=== PATIENT | female | born 1945 | race Caucasian/White ===

== ENCOUNTER 2017-10-01 07:46 | Outpatient (CLI) | payer MEDICARE, BC ==
[2017-10-01] MEDS ORDERED: Iopamidol 370 76% 100 ML VIAL ONE (09:00)
--- NOTE | 2017-10-01 09:08 | CT ---
CT CHEST WITH IV CONTRAST: HISTORY: Restaging lung cancer. Malignant neoplasm of the lower lobe left bronchus of lung, which was diagnos ed in 2009. The patient is post chemo/radiation therapy. COMPARISON: Study from [facility] from 04/22/2017. FINDINGS: No mediastinal, hilar, or axillary mass or lymphadenopathy is seen. Trace pericardial fluid is again noted. No pleural effusions are identified. The parenchymal scarring with association traction bronchiectasis in the left lung base and the focal nodular infiltrate in the right posterior lung base remains stable. The calcified granuloma in the posteromedial aspect of the right lower lobe is also stable. No new lung nodules are identified. There are degenerative changes in the spine. No osteolytic or osteoblastic lesions are identified. There is no evidence of aneurysmal dilatation of the thoracic aorta. Upper abdominal tomograms demon strate calcified granulomas of the spleen and changes of a cholecystectomy. Left-sided rib fractures are again seen. IMPRESSION: Stable exam since 04/22/2017. POS: [facility]
== END 2017-10-01 07:47 | disposition home or self-care (01) ==
LOC: SCSCT 07:46
PROVIDERS: ATTEND Internal Medicine Hematology & Oncology
DX: C34.32 Malignant neoplasm of lower lobe, left bronchus or lung (principal)
CPT/HCPCS: 71260; 82565

== ENCOUNTER 2017-11-18 09:35 | Outpatient (CLI) | payer MEDICARE, BC ==
[2017-11-18 13:06] LABS: #Eosinphils 0.2 thou/uL (0.0-0.7); #Monocytes 0.7 thou/uL (0.11-0.59); #Neutrophils 4.6 thou/uL (1.40-6.50); %Basophils 0.4 % (0.0-1.0); %Eosinophils 2.9 % (0.0-10.0); %Lymphocytes 35.1 % (21.0-51.0); %Monocytes 7.8 % (0.0-10.0); %Neutrophils 53.8 % (42.0-75.0); Hemoglobin 15.3 g/dL (12.0-16.0); Mean Corpuscular HGB CONC 31.8 g/dL (32.0-36.0); Mean Corpuscular Hemoglobin 30.5 pg (27.0-31.0); Mean Corpuscular Volume 95.7 fl (81.0-99.0); Mean Platelet Volume 9.4 fL (7.4-10.4); Platelet Count 368 thou/uL (130-400); RBC Distribution Width 12.9 % (11.5-14.5); Red Blood Cell (RBC) Count 5.03 mill/uL (4.20-5.40); White Blood Cell (WBC) Count 8.6 thou/uL (4.8-10.8)
[2017-11-18 13:21] LABS: PTT 22.5 SEC (22.9-36.1)
[2017-11-18 13:37] LABS: ALT (SGPT) 12 U/L (8-55); AST (SGOT) 23 U/L (5-34); Albumin 4.1 g/dL (3.4-4.8); Alkaline Phosphatase 104 U/L (40-150); Anion Gap 15 mmol/L (10-20); BUN (Urea Nitrogen) 11 mg/dL (9.8-20.1); Bilirubin, Total 0.7 mg/dL (0.2-1.2); Calc. Creatinine Clearance 0 mL/min (70-130); Calcium 9.9 mg/dL (7.8-10.44); Carbon Dioxide 25 mmol/L (23-31); Chloride 104 mmol/L (98-107); Estimated GFR-MDRD 54; Globulin 3.4 g/dL (2.4-3.5); Glucose 75 mg/dL (80-115); Potassium 4.3 mmol/L (3.5-5.1); Protein, Total 7.5 g/dL (6.0-8.3); Sodium 140 mmol/L (136-145)
--- NOTE | 2017-11-18 16:02 | EKG ---
Test Reason : Blood Pressure : / mmHG Vent. Rate : 062 BPM Atrial Rate : 062 BPM P-R Int : 188 ms QRS Dur : 078 ms QT Int : 444 ms P-R-T Axes : 004 -12 034 degrees QTc Int : 450 ms Normal sinus rhythm Low voltage QRS Inferior infarct , age undetermined cannot be excluded Cannot rule out Anteroseptal infarct , age undetermined Abnormal ECG Confirmed by LORELEI ROBERTS ([id number]) on 11/18/2017 4:02:31 PM Referred By: BECKA Confirmed By:LORELEI ROBERTS
== END 2017-11-18 09:36 | disposition home or self-care (01) ==
LOC: LABBT 09:35
PROVIDERS: ATTEND Internal Medicine Cardiovascular Disease
DX: Z01.818 Encounter for other preprocedural examination (principal); R07.9 Chest pain, unspecified
CPT/HCPCS: 93005; 93010

== ENCOUNTER 2017-11-20 06:22 | Observation (INO) | payer MEDICARE, BC ==
[2017-11-20] MEDS ORDERED: Lidocaine 1% (PF) 30 ML VIAL ONE (06:46)
[2017-11-20 07:40] LABS: Cardiac Risk 3.9 (Less than 4.5)
[2017-11-20] MEDS ORDERED: Fentanyl 100 MCG/2 ML VIAL ONE (08:54)
[2017-11-20] MEDS ORDERED: Midazolam HCl 2 mg/2 ml Vial ONE (08:54)
[2017-11-20] MEDS ORDERED: Heparin 10,000 UNITS/1 ML VIAL ONE (09:07)
[2017-11-20] MEDS ORDERED: hydrALAZINE 20 MG/ML VIAL ONE (09:16)
[2017-11-20] MEDS ORDERED: Nitroglycerin 100MG/250ML BOT 250 ML ONE (09:18)
[2017-11-20] MEDS ORDERED: Ondansetron HCl/PF 4 MG/2 ML Vial ONE ×3 (09:25→16:53)
[2017-11-20] MEDS ORDERED: Iopamidol 370 76% 50 ML VIAL FS ONE (11:34)
[2017-11-20] MEDS ORDERED: Iopamidol 370 76% 100 ML VIAL ONE (11:34)
[2017-11-20] MEDS ORDERED: Acetaminophen/Codeine 30-300mg Tablet PO PRN ×2 (15:11)
[2017-11-20] MEDS ORDERED: Nitroglycerin 0.4 MG TAB (25 Tab Bottle) SL PRN (15:11)
[2017-11-20] MEDS ORDERED: traMADol HCl 50 MG TAB PO PRN (15:11)
[2017-11-20] MEDS ORDERED: BEVACIZUMAB IVPB SCH (15:30)
[2017-11-20] MEDS ORDERED: Ondansetron HCl/PF 4 MG/2 ML Vial IVP PRN (15:49)
[2017-11-20] MEDS ORDERED: hydrALAZINE 20 MG/ML VIAL SLOW IVP PRN (15:50)
--- NOTE | 2017-11-20 16:01 | EKG ---
Test Reason : POST STENTS X2 Blood Pressure : / mmHG Vent. Rate : 066 BPM Atrial Rate : 066 BPM P-R Int : 192 ms QRS Dur : 082 ms QT Int : 458 ms P-R-T Axes : 070 013 052 degrees QTc Int : 480 ms Normal sinus rhythm Low voltage QRS Borderline ECG Confirmed by LORELEI ROBERTS ([id number]) on 11/20/2017 4:01:23 PM Referred By: BECKA Confirmed By:LORELEI ROBERTS
[2017-11-20 17:52] VITALS: BMI 25.9
[2017-11-20] MEDS: TICAGRELOR 90 MG TABLET PO SCH (20:59)
[2017-11-20] MEDS ORDERED: diphenhydrAMINE 25 MG CAP PO SCH (21:00)
[2017-11-20] MEDS ORDERED: Atorvastatin Calcium 40 MG TAB PO SCH (21:00)
[2017-11-21 04:55] LABS: #Eosinphils 0.1 thou/uL (0.0-0.7); #Lymphocytes 2.1 thou/uL (1.20-3.40); #Monocytes 0.7 thou/uL (0.11-0.59); #Neutrophils 8.7 thou/uL (1.40-6.50); %Basophils 0.2 % (0.0-1.0); %Eosinophils 0.7 % (0.0-10.0); %Lymphocytes 17.9 % (21.0-51.0); %Monocytes 6.4 % (0.0-10.0); %Neutrophils 74.8 % (42.0-75.0); Hemoglobin 12.7 g/dL (12.0-16.0); Mean Corpuscular HGB CONC 32.6 g/dL (32.0-36.0); Mean Corpuscular Hemoglobin 30.8 pg (27.0-31.0); Mean Corpuscular Volume 94.4 fl (81.0-99.0); Mean Platelet Volume 8.1 fL (7.4-10.4); Platelet Count 351 thou/uL (130-400); RBC Distribution Width 12.8 % (11.5-14.5); Red Blood Cell (RBC) Count 4.12 mill/uL (4.20-5.40); White Blood Cell (WBC) Count 11.6 thou/uL (4.8-10.8)
[2017-11-21 05:08] LABS: Anion Gap 11 mmol/L (10-20); BUN (Urea Nitrogen) 12 mg/dL (9.8-20.1); Calc. Creatinine Clearance 61 mL/min (70-130); Carbon Dioxide 25 mmol/L (23-31); Chloride 106 mmol/L (98-107); Estimated GFR-MDRD 60; Glucose 98 mg/dL (80-115); Potassium 3.8 mmol/L (3.5-5.1); Sodium 138 mmol/L (136-145)
[2017-11-21] MEDS: TICAGRELOR 90 MG TABLET PO SCH (08:51)
[2017-11-21] MEDS ORDERED: Lisinopril 20 MG TAB PO SCH (09:00)
[2017-11-21] MEDS ORDERED: Hydrochlorothiazide 25 MG TAB PO SCH (09:00)
[2017-11-21] MEDS ORDERED: BIOTIN PO SCH (09:00)
[2017-11-21 11:05] VITALS: TEMP 97.8
[2017-11-21 11:51] VITALS: BP 133/66
--- NOTE | 2017-11-21 12:00 | DIS ---
DATE OF ADMISSION: 11/20/2017 DATE OF DISCHARGE: 11/21/2017 DISCHARGING PHYSICIAN: Kwame Hutchinson MD SUMMARY: Mr. Valentino is a 72-year-old white female who comes to the hospital for an outpatient he art catheterization. She had apical large area of ischemia on MPI. Heart catheterization showed jesus dence of a severe LAD and left circumflex disease, so stents were placed in both these arteries drug- eluting. She was started on Brilinta. She was kept overnight as she kept getting a vagal episode wh ere she would lindsay down and get hypotensive. She never did pass out. She did much better. She did walk around a little bit and have a small hematoma in the right groin, which was pushed down and has not had any problems since this was the last night. This morning, she feels great. She has not had any more episodes of vagal low blood pressure. She does not have any problems with her groin anymor e. There is a just lot of bruising. LABORATORY DATA: Laboratory work is unremarkable today. Her cholesterol was a little high, LDL at 1 31, goal less than 70 now. She was recently started on Lipitor. DISCHARGE MEDICATIONS: Unchanged except for the addition of Brilinta 90 mg p.o. twice a day, which s he will get samples today and she will take for the next month and she has a prescription for Plavix 75 mg a day after that as it is very expensive with her insurance of Brilinta. She will follow up with me in 1 month. Over 30 minutes was spent at bedside, counseling for discharge.
--- NOTE | 2017-11-21 13:22 | EKG ---
Test Reason : Blood Pressure : / mmHG Vent. Rate : 058 BPM Atrial Rate : 058 BPM P-R Int : 194 ms QRS Dur : 080 ms QT Int : 462 ms P-R-T Axes : 022 003 036 degrees QTc Int : 453 ms Sinus bradycardia Low voltage QRS Nonspecific T wave abnormality Abnormal ECG Confirmed by LORELEI ROBERTS ([id number]) on 11/21/2017 1:21:44 PM Referred By: BECKA Confirmed By:LORELEI ROBERTS
[2017-11-22] MEDS ORDERED: Aspirin 81 mg Enteric Coated Tablet PO SCH (09:00)
== END 2017-11-21 12:01 | disposition home or self-care (01) ==
LOC: CCL 06:22 → 2SW 14:57
PROVIDERS: ADMIT Internal Medicine Cardiovascular Disease; ATTEND Internal Medicine Cardiovascular Disease
PROC: 4A023N7 Measurement of Cardiac Sampling and Pressure, Left Heart, Percutaneous Approach (ICD-10-PCS; principal; 2017-11-20)
PROC: B2111ZZ Fluoroscopy of Multiple Coronary Arteries using Low Osmolar Contrast (ICD-10-PCS; 2017-11-20)
PROC: 02713ZZ Dilation of Coronary Artery, Two Arteries, Percutaneous Approach (ICD-10-PCS; 2017-11-20)
DX: I25.10 Atherosclerotic heart disease of native coronary artery without angina pectoris (principal); I10 Essential (primary) hypertension; E78.00 Pure hypercholesterolemia, unspecified; R07.9 Chest pain, unspecified; Z79.02 Long term (current) use of antithrombotics/antiplatelets; Z79.899 Other long term (current) drug therapy; Z88.1 Allergy status to other antibiotic agents; Z95.5 Presence of coronary angioplasty implant and graft; Z79.82 Long term (current) use of aspirin
CPT/HCPCS: 80048; 80061; 85025; 85347 ×3; 93005 ×3; 93458; 93798; C1725; C1769 ×2; C1874; C9600; C9601; G0378; 36415; 92928; 92929; 93010; 99152; 99153; A4216; J0360; J1644; J2001; J2250; J2405; J3010; J7050

== ENCOUNTER 2018-01-27 08:54 | Outpatient (CLI) | payer MEDICARE, BC | END 2018-01-27 08:55 | disposition home or self-care (01) | LOC: BICMAMMO 08:54 | PROVIDERS: ATTEND Family Medicine | DX: Z12.31 Encounter for screening mammogram for malignant neoplasm of breast (principal) | CPT/HCPCS: 77063; 77067 ==

== ENCOUNTER 2018-03-23 07:36 | Outpatient (CLI) | payer MEDICARE, BC ==
[2018-03-23 08:50] LABS: ALT (SGPT) 14 U/L (8-55); AST (SGOT) 23 U/L (5-34); Albumin 4.2 g/dL (3.4-4.8); Alkaline Phosphatase 99 U/L (40-150); Anion Gap 16 mmol/L (10-20); BUN (Urea Nitrogen) 12 mg/dL (9.8-20.1); Bilirubin, Total 0.6 mg/dL (0.2-1.2); Calc. Creatinine Clearance 0 mL/min (70-130); Carbon Dioxide 24 mmol/L (23-31); Cardiac Risk 3.8 (Less than 4.5); Chloride 106 mmol/L (98-107); Cholesterol 199 mg/dl (< 200 Desired); Estimated GFR-MDRD 55; Glucose 92 mg/dL (80-115); HDL Cholesterol 52 mg/dL (>60 Neg Risk); LDL Cholesterol, Calculated 112 mg/dL; Potassium 4.7 mmol/L (3.5-5.1); Protein, Total 8.2 g/dL (6.0-8.3); Sodium 141 mmol/L (136-145); Triglycerides 176 mg/dL (Less than 150)
[2018-03-23 09:00] LABS: Bilirubin Negative (Negative); Blood, Urine Trace (Negative); Clarity Clear (Clear); Glucose, Urine (Dipstick) Negative (Negative); Leukocyte Trace (Negative); Nitrite Negative (Negative); Protein, Urine (Dipstick) Negative (Neg-Trace); Urobilinogen 0.2 mg/dL (0.2-1.0); pH, Urine 6.5 (5.0-9.0)
[2018-03-23] MEDS ORDERED: Iopamidol 370 76% 100 ML VIAL ONE (09:00)
[2018-03-23 09:20] LABS: Eosinophils 2 % (0-10); Hemoglobin 14.7 g/dL (12.0-16.0); Lymphocytes 32 % (21-51); MDiff Complete? YES; Mean Corpuscular Hemoglobin 29.8 pg (27.0-31.0); Mean Corpuscular Volume 90.2 fL (78.0-98.0); Mean Platelet Volume 7.8 fL (7.4-10.4); Monocytes 6 % (0-10); Neutrophil 60 % (42-75); PLT Morphology Comment Appears Increased; Platelet Count 446 thou/uL (130-400); RBC Distribution Width 13.3 % (11.5-14.5); RBC Morphology Normal; Red Blood Cell (RBC) Count 4.93 mill/uL (4.20-5.40); White Blood Cell (WBC) Count 9.7 thou/uL (4.8-10.8)
[2018-03-23 09:38] LABS: Bacteria/HPF None Seen HPF (None Seen); RBC/HPF 0-3 HPF (0-3); Squamous Epithelial 0-3 HPF (0-3); WBC/HPF 0-3 HPF (0-3)
--- NOTE | 2018-03-23 09:58 | CT ---
CT CHEST WITH IV CONTRAST: HISTORY: Lung cancer restaging. Malignant neoplasm of the lower lobe of the left bronchus of lung, which was diagnosed in 2009. The patient is post chemoradiation therapy. COMPARISON: 10/01/17. FINDINGS: No mediastinal, hilar, or axillary mass or lymphadenopathy is seen. Trace pericardial fluid is redem onstrated. No pleural effusions are identified. The parenchymal scarring with associated traction bronchiectasis in the left lung base and the focal nodular infiltrate in the right posterior lung base remain stable. The calcified granuloma in the po steromedial aspect of the right lower lobe remains stable as well. No new lung nodules are identifie d. There are degenerative changes in the spine. No osteolytic or osteoblastic lesions are identified. There is no evidence of aneurysmal dilatation of the thoracic aorta. Upper abdominal tomograms demon strate calcified granulomas in the spleen. Left-sided rib fractures are again seen. IMPRESSION: Stable exam since 10/01/17. POS: [facility]
[2018-03-23 10:03] LABS: Thyroid Stimulating Hormone 2.1184 uIU/mL (0.35-4.94)
[2018-03-23 11:36] LABS: Hemoglobin A1c 5.4 % (4.0-6.0)
[2018-03-23 12:23] LABS: Creatinine, Urine 65.18 mg/dL (47-110); Microalbumin Urine Less than 1.0 mg/dL (0.5-50.0)
[2018-03-23 12:58] LABS: Vitamin D, 25 Hydroxy 54.8 ng/ml (> 30.0)
== END 2018-03-23 07:37 | disposition home or self-care (01) ==
LOC: SCSCT 07:36
PROVIDERS: ATTEND Internal Medicine Hematology & Oncology
DX: Z00.01 Encounter for general adult medical examination with abnormal findings (principal); C34.90 Malignant neoplasm of unspecified part of unspecified bronchus or lung; E11.9 Type 2 diabetes mellitus without complications; E78.00 Pure hypercholesterolemia, unspecified; E55.9 Vitamin D deficiency, unspecified; I40.0 Infective myocarditis; R53.83 Other fatigue; Z79.899 Other long term (current) drug therapy
CPT/HCPCS: 71260; 80053; 80061; 81003; 81015; 82043; 82306; 83036; 84443; 85007; 85027

== ENCOUNTER 2018-10-20 07:25 | Outpatient (CLI) | payer MEDICARE, BC ==
--- NOTE | 2018-10-20 12:11 | CT ---
CHEST CT WITH COTNRAST ABDOMEN CT WITH COTNRAST PELVIC CT WITH CONTRAST: HISTORY: Routine followup. The patient has 2 heart stents. Lung cancer restaging. COMPARISON: 03/23/2018, 10/01/2017. TECHNIQUE: Chest, abdomen, and pelvic CT are performed with IV contrast. Reformatted images are submitted for i nterpretation. Enteric contrast was also administered. FINDINGS: CT CHEST: Trachea and central bronchi are patent. There are dependent atelectatic changes. There is a stable opacification in both lower lobes suggesting areas of scaring and atelectasis. No new areas of conso lidation. There are no suspicious masses. No pleural effusion or pneumothorax. Calcified granuloma along the periphery of the medial pleura is noted at the level of the right lower lobe. No axillary lymphadenopathy. No mediastinal mass, lymphadenopathy, or hematoma. The visualized thor acic aorta is unremarkable.. Heart size is normal. No pericardial occlusion. Central pulmonary art eries are patent without filling defect. The thoracic aorta and abdominal aorta have a normal calibe r. No periaortic fat stranding. CT ABDOMEN: Gallbladder is surgically absent. Patent portal vein. The liver, spleen, pancreas, and adrenal glan d have appropriate enhancement. No gastrohepatic, retrocrural, or periportal lymphadenopathy. No mesenteric mass, lymphadenopathy, free air, or free fluid. There is a hypodensity in the mid pole of the right kidney measuring 2.0 x 2.4 cm, compatible with a cyst. Bilaterally, no obstructive uropathy. No mesenteric mass, lymphadenopathy, free air, or free fluid. Gastric mucosa, duodenum, and small bowel loops have a normal caliber and appearance. The ileocecal junction is normal. The visualized colon is unremarkable. There is diverticulosis, without evidence of diverticulitis. CT PELVIS: Uterus and adnexal structures are unremarkable. No pelvic mass, lymphadenopathy, free air, or free f luid. No lytic or blastic lesions in the osseous structures. IMPRESSION: 1. Stable, persistent opacities in the lung bases. Opacities are presumed to represent areas of sca rring. There are no new or suspicious masses in the lung parenchyma. 2. Right renal cyst. No obstructive uropathy. POS: [facility]
== END 2018-10-20 07:26 | disposition home or self-care (01) ==
LOC: SCSCT 07:25
PROVIDERS: ATTEND Internal Medicine Hematology & Oncology
DX: C34.32 Malignant neoplasm of lower lobe, left bronchus or lung (principal); N28.1 Cyst of kidney, acquired; R91.8 Other nonspecific abnormal finding of lung field
CPT/HCPCS: 71260; 74177; 82565

== ENCOUNTER 2019-01-28 08:39 | Outpatient (CLI) | payer MEDICARE, BC ==
--- NOTE | 2019-01-28 11:17 | MMO ---
Bilateral MAMMO Bilat Screen [facility]DI[facility]. CLINICAL HISTORY: Patient is 73 years old and is seen for screening. The patient has no family history of breast cancer. The patient has a history of lung cancer in 2015. The patient has a history of left Stereotatic Biopsy in November, - fibroadenoma. VIEWS: The views performed were: bilateral craniocaudal with tomosynthesis and bilateral mediolateral oblique with tomosynthesis. FILMS COMPARED: The present examination has been compared to prior imaging studies performed at [facility] on 12/28/2015, 01/23/2017 and 01/27/2018. MAMMOGRAM FINDINGS: There are scattered fibroglandular densities. Finding 1: There are stable post operative changes seen in the left breast. Finding 2: There are stable benign appearing calcifications seen in both breasts. There are no suspicious masses, suspicious calcifications, or new areas of architectural distortion. IMPRESSION: THERE IS NO MAMMOGRAPHIC EVIDENCE OF MALIGNANCY. A ROUTINE FOLLOW-UP MAMMOGRAM IN 1 YEAR IS RECOMMENDED. THE RESULTS OF THIS EXAM WERE SENT TO THE PATIENT. ACR BI-RADS Category 2 - Benign finding MAMMOGRAPHY NOTE: 1. A negative mammogram report should not delay a biopsy if a dominant of clinically suspicious mass is present. 2. Approximately 10% to 15% of breast cancers are not detected by mammography. 3. Adenosis and dense breasts may obscure an underlying neoplasm.
== END 2019-01-28 08:40 | disposition home or self-care (01) ==
LOC: BICMAMMO 08:39
PROVIDERS: ATTEND Family Medicine
DX: Z12.31 Encounter for screening mammogram for malignant neoplasm of breast (principal); Z85.118 Personal history of other malignant neoplasm of bronchus and lung
CPT/HCPCS: 77063; 77067

== ENCOUNTER 2019-03-01 02:03 | Outpatient (CLI) | payer MEDICARE, BC ==
[2019-03-01 13:32] LABS: #Basophils 0.1 thou/uL (0.0-0.2); #Eosinphils 0.4 thou/uL (0.0-0.7); #Lymphocytes 2.9 thou/uL (1.20-3.40); #Monocytes 0.6 thou/uL (0.11-0.59); #Neutrophils 4.4 thou/uL (1.40-6.50); %Eosinophils 4.4 % (0.0-10.0); %Lymphocytes 34.9 % (21.0-51.0); %Neutrophils 52.8 % (42.0-75.0); Hemoglobin 13.8 g/dL (12.0-16.0); Mean Corpuscular HGB CONC 31.3 g/dL (32.0-36.0); Mean Corpuscular Hemoglobin 29.2 pg (27.0-31.0); Mean Corpuscular Volume 93.3 fL (78.0-98.0); Mean Platelet Volume 8.6 fL (7.4-10.4); Platelet Count 405 thou/uL (130-400); RBC Distribution Width 12.8 % (11.5-14.5); Red Blood Cell (RBC) Count 4.73 mill/uL (4.20-5.40); White Blood Cell (WBC) Count 8.4 thou/uL (4.8-10.8)
[2019-03-01 13:38] LABS: PTT 27.4 SEC (22.9-36.1)
[2019-03-01 13:58] LABS: ALT (SGPT) 14 U/L (8-55); AST (SGOT) 25 U/L (5-34); Albumin 4.3 g/dL (3.4-4.8); Alkaline Phosphatase 108 U/L (40-150); Anion Gap 15 mmol/L (10-20); BUN (Urea Nitrogen) 12 mg/dL (9.8-20.1); Bilirubin, Total 0.6 mg/dL (0.2-1.2); Calc. Creatinine Clearance 0 mL/min (70-130); Calcium 10.1 mg/dL (7.8-10.44); Carbon Dioxide 24 mmol/L (23-31); Cardiac Risk 3.4 (Less than 4.5); Chloride 105 mmol/L (98-107); Cholesterol 220 mg/dl (< 200 Desired); Estimated GFR-MDRD 63; Globulin 3.3 g/dL (2.4-3.5); Glucose 89 mg/dL (83-110); HDL Cholesterol 65 mg/dL (>60 Neg Risk); LDL Cholesterol, Calculated 135 mg/dL; Potassium 4.3 mmol/L (3.5-5.1); Protein, Total 7.6 g/dL (6.0-8.3); Sodium 140 mmol/L (136-145); Triglycerides 99 mg/dL (Less than 150)
== END 2019-03-01 02:04 | disposition home or self-care (01) ==
LOC: LABBT 02:03
PROVIDERS: ATTEND Internal Medicine Cardiovascular Disease
DX: Z01.812 Encounter for preprocedural laboratory examination (principal); I25.10 Atherosclerotic heart disease of native coronary artery without angina pectoris
CPT/HCPCS: 80053; 80061; 85025; 85610; 85730

== ENCOUNTER 2019-03-03 05:55 | Day surgery (SDC) | payer MEDICARE, BC ==
[2019-03-01 12:15] VITALS: BMI 22.6
[2019-03-03] MEDS ORDERED: Lidocaine 1% (PF) 30 ML VIAL ONE (07:07)
[2019-03-03] MEDS ORDERED: Midazolam HCl 2 mg/2 ml Vial ONE (07:40)
[2019-03-03] MEDS ORDERED: Fentanyl 100 MCG/2 ML VIAL ONE (07:40)
[2019-03-03] MEDS ORDERED: hydrALAZINE 20 MG/ML VIAL ONE (08:06)
[2019-03-03] MEDS ORDERED: Iopamidol 370 76% 100 ML VIAL ONE (14:42)
== END 2019-03-03 11:13 | disposition home or self-care (01) ==
LOC: CCL 05:55
PROVIDERS: ATTEND Internal Medicine Cardiovascular Disease
PROC: 4A023N7 Measurement of Cardiac Sampling and Pressure, Left Heart, Percutaneous Approach (ICD-10-PCS; principal; 2019-03-03)
PROC: B2111ZZ Fluoroscopy of Multiple Coronary Arteries using Low Osmolar Contrast (ICD-10-PCS; 2019-03-03)
DX: I25.10 Atherosclerotic heart disease of native coronary artery without angina pectoris (principal); E78.00 Pure hypercholesterolemia, unspecified; I10 Essential (primary) hypertension; C34.90 Malignant neoplasm of unspecified part of unspecified bronchus or lung; Z87.891 Personal history of nicotine dependence; Z79.02 Long term (current) use of antithrombotics/antiplatelets; Z79.82 Long term (current) use of aspirin; Z79.899 Other long term (current) drug therapy; Z88.1 Allergy status to other antibiotic agents; Z95.5 Presence of coronary angioplasty implant and graft
CPT/HCPCS: 93458; 99152; C1769; J0360; J1644; J2001; J2250; J3010

== ENCOUNTER 2019-03-03 13:29 | Emergency (ER) | payer MEDICARE, BC ==
[2019-03-03] MEDS ORDERED: Ondansetron PF 4 MG/2 ML Vial ONE (14:16)
[2019-03-03] MEDS ORDERED: Morphine 4 MG/ML VIAL ONE ×2 (14:16→14:58)
--- NOTE | 2019-03-03 15:04 | ULT ---
Exam: Ultrasound pseudoaneurysm/compression evaluation: HISTORY: Right groin pain status post catheterization. The right groin is evaluated. There is an approximately 0.7 x 1.7 cm hypoechoic/anechoic focus in the right groin anteriorly with a neck of blood flow extending down to the underlying common femoral artery. This is consistent with a partially occluded pseudoaneurysm. IMPRESSION: Small right groin anterior partially occluded pseudoaneurysm with a neck of abnormal blood flow from the common femoral artery into the pseudoaneurysm although not totally filling at.
[2019-03-03] MEDS ORDERED: Fentanyl 100 MCG/2 ML VIAL ONE (15:14)
[2019-03-03] MEDS ORDERED: Fentanyl 100 MCG/2 ML VIAL SLOW IVP SCH (15:15)
--- NOTE | 2019-03-03 19:09 | ULT ---
EXAM: US PseudoAneurysm Bell Evl PROVIDED CLINICAL HISTORY: Right groin pseudoaneurysm. Follow-up evaluation. COMPARISON: 03/03/2019 obtained earlier today. FINDINGS: Grayscale, color-flow, and Doppler evaluation right groin was performed. Previously noted small collection in the right groin is again seen measuring 1.3 cm x 0.4 cm with pre vious measurement of 1.7 cm x 0.7 cm. This is again located anterior to the region of the common femoral vessels. The previously seen linear area of flow extending from the underlying common femoral artery to this structure with tiny amount of flow within the base of the structure on prior exam is no longer visualized. Findings are suggestive of thrombosed pseudoaneurysm in the right groin. No pseudoaneurysm demonstrating flow is visualized on this exam. Color flow evaluation and spectral analysis of Doppler waveforms demonstrates flow within both the ri ght common femoral artery and common femoral vein. IMPRESSION: 1. Previously seen partially thrombosed pseudoaneurysm right groin is now completely thrombosed witho ut flow seen within this hypoechoic collection which is also slightly smaller in size. No pseudoaneurysm demonstrating flow is seen on this exam. Flow is present in both the right common femo ral artery and vein.
== END 2019-03-03 20:22 | disposition home or self-care (01) ==
LOC: ERS 13:29
DX: I72.8 Aneurysm of other specified arteries (principal); I10 Essential (primary) hypertension; E78.5 Hyperlipidemia, unspecified; I25.10 Atherosclerotic heart disease of native coronary artery without angina pectoris; Z87.891 Personal history of nicotine dependence; Z79.899 Other long term (current) drug therapy
CPT/HCPCS: 76936; 93458; C1769; 96361; 96374; 96375; 96376; 99152; J0360; J1644; J2001; J2250; J2270; J2405; J3010; Q9967

== ENCOUNTER 2019-03-16 12:34 | Outpatient (CLI) | payer MEDICARE, BC ==
--- NOTE | 2019-03-16 12:59 | RAD ---
CHEST TWO VIEWS: HISTORY: Fever. TECHNIQUE: PA and lateral views of the chest obtained. FINDINGS: There is a right jugular Mediport catheter in place. The lungs are well aerated. No evidence of act skye intrathoracic disease is seen. An area of scarring is seen in the left lower lobe. IMPRESSION: Left lower lobe scarring; otherwise unremarkable two views chest. Transcribed Date/Time: 03/16/2019 2:16 PM
== END 2019-03-16 12:35 | disposition home or self-care (01) ==
LOC: SCSRAD 12:34
PROVIDERS: ATTEND Family Medicine
DX: A68.9 Relapsing fever, unspecified (principal); J98.4 Other disorders of lung
CPT/HCPCS: 71046